=== PATIENT | male | born 1975 | race Caucasian/White ===

== ENCOUNTER 2017-03-03 06:57 | Emergency (ER) | payer OTHER ==
[~2017-03-03] VITALS: Ht 177.8 cm; Wt 111.0 kg
[2017-03-03 07:01] VITALS: Ht 177.8 cm; Wt 111.0 kg
[2017-03-03] MEDS ORDERED: KETOROLAC 60 MG INJ IM STA (07:35)
[2017-03-03 07:49] LABS: URINE BLOOD (Dip) POC 2+ (NEGATIVE)
--- NOTE | 2017-03-03 08:41 | RADRPT ---
PROCEDURE: CT KUB (renal stone survey). CLINICAL INDICATION: Left flank pain. TECHNIQUE: CT KUB (Renal Stone Survey) without contrast was performed on a multidetector high-reso lution CT scanner. No IV contrast was administered. Coronal and sagittal reformatted images were o btained from the axial source images. Images were reviewed on a high-resolution PACS workstation. Th e total exam CTDI equals 22.67 mGy and the total exam DLP equals 1290.45 mGy-cm. One or more of the following dose reduction techniques were used: - Automated exposure control. - Adjustment of the mA and/or kV according to patient size. - Use of iterative reconstruction technique. COMPARISON: No prior studies are available for comparison. FINDINGS: CT renal stone survey: The kidneys are symmetric in size, position, and morphology. There is a questionable tiny cyst in th e midpole cortex of the right kidney, very poorly visualized on this study. Small 4 mm calculus is seen along the calyx of the mid/superior pole of the left kidney. However, there is a dominant 5.0 m m calculus in the distal left UVJ causing mild proximal obstructive uropathy. Mild left-sided hydro ureternephrosis is present. There is no evidence for obstructive uropathy on the right side. The [facility] renal collecting system is normal. The bladder, as visualized, is partially collapsed and decom pressed, but otherwise grossly unremarkable. There are benign phleboliths within the pelvis, distin ct and separate from the distal ureters. CT abdomen: The lung bases are clear. The heart size is normal, without pericardial thickening or effusion. The liver is normal in size and fatty infiltrated without focal mass or intrahepatic biliary dilatation . The spleen is normal in size and homogeneous in density. The stomach is partially collapsed, but is grossly unremarkable. The pancreas as visualized is normal. The gallbladder and biliary tree a re unremarkable and there is no evidence for biliary dilatation. The adrenal glands are symmetric a nd normal. The aorta is of normal caliber. There is no retroperitoneal lymphadenopathy. The gerry hepatis region is clear. The bowel and mesentery, as visualized, are equally unremarkable. CT pelvis: The small bowel loops situated within the pelvis are unremarkable. There is a small right inguinal hernia containing omental fat only, without evidence for bowel herniation. The pelvic organs are no rmal. The pelvic sidewalls and inguinal regions are clear. The sigmoid colon and rectum are all un remarkable. No pelvic mass or adenopathy is seen. No significant free fluid is identified. No acute inflammation is seen. The surrounding osseous structures are remarkable for degenerative spondylosis of the spine. No ost eolytic or osteoblastic lesion is detected. IMPRESSION: 1. 5 mm calculus in the distal left UVJ causing mild proximal obstructive uropathy. 2. Tiny 4 mm calculus in the mid/superior pole vicki of the left kidney. 3. Small fat-containing right inguinal hernia. 4. Fatty infiltration of the liver. RPTAT: HMJB .Taras Celaya MD, MD Date Time Electronically viewed and signed by .Taras Celaya MD, on 03/03/2017 08:41 .B/
[2017-03-03] MEDS ORDERED: TRAM50TA2 PO (08:59)
[2017-03-03] MEDS ORDERED: IBUP800T25 PO (08:59)
--- NOTE | 2017-03-03 09:03 | ERD ---
ER Documentation Chief Complaint Date/Time DATE: 03/03/17 TIME: 09:02 Chief Complaint lt upper abd pain raditing to testicles since last night HPI This 5-year-old male complains of pain in his left mid abdomen radiating to his testicle since last night. Positive for some mild dysuria. Denies any hematuria, fevers, vomiting. Denies any right-sided abdominal pain and denies any pain or swelling of the actual testicle. ROS All systems reviewed and are negative except as per history of present illness. Medications Home Meds Active Scripts Ibuprofen* (Motrin*) 800 Mg Tab, 800 MG PO Q6, #20 TAB Prov:LIZZY GALLAGHER MD 03/03/17 Tramadol HCl (Tramadol HCl) 50 Mg Tablet, 50 MG PO Q4 Y for PAIN, #15 TAB Prov:LIZZY GALLAGHER MD 03/03/17 Allergies Allergies: Coded Allergies: No Known Allergy (Unverified , 03/03/17) PMhx/Soc Medical and Surgical Hx: pt denies Medical Hx History of Surgery: Yes (appendectomy) Anesthesia Reaction: No Hx Neurological Disorder: No Hx Respiratory Disorders: No Hx Cardiac Disorders: No Hx Psychiatric Problems: No Hx Miscellaneous Medical Probl: No Hx Alcohol Use: Yes (occassional) Hx Substance Use: No Hx Tobacco Use: Yes (occasional ) Smoking Status: Current some day smoker Physical Exam Vitals Vital Signs Date Time Temp Pulse Resp B/P Pulse Ox O2 Delivery O2 Flow Rate FiO2 03/03/17 07:01 98.7 76 18 138/85 99 Physical Exam Const: [] Alert, [id number]. Head: Atraumatic Eyes: Normal Conjunctiva ENT: Normal External Ears, Nose and Mouth. Neck: Full range of motion..~ No meningismus. Resp: Clear to auscultation bilaterally Cardio: Regular rate and rhythm, no murmurs Abd: Soft, minimal tenderness in left mid abdomen. No CVA tenderness., non distended. Normal bowel sounds. Testicles nontender normal size bilaterally no appreciable hernias or penile discharge. Skin: No petechiae or rashes Back: No midline or flank tenderness Ext: No cyanosis, or edema Neur: Awake and alert Psych: Normal Mood and Affect Results 24 hrs Laboratory Tests Test 03/03/17 07:53 Bedside Urine pH (LAB) 5.5 Bedside Urine Protein (LAB) Negative Bedside Urine Glucose (UA) Negative Bedside Urine Ketones (LAB) Negative Bedside Urine Blood 2+ Bedside Urine Nitrite (LAB) Negative Bedside Urine Leukocyte Esterase (L Negative Current Medications Medications (Trade) Dose Ordered Sig/Ravi Route PRN Reason Start Time Stop Time Status Last Admin Dose Admin Ketorolac Tromethamine (Toradol) 60 mg ONCE STAT IM 03/03/17 07:35 03/03/17 07:37 DC 03/03/17 07:44 Procedures/MDM Urine shows positive hemoglobin without leukocytes, nitrites or glucose. CT abdomen pelvis shows a 5 mm kidney stone at the left UVJ junction. There is some mild hydronephrosis. There is no additional acute findings of an additional undescended calculus. Patient was given Toradol 60 mg IM. Patient signs and symptoms of left renal colic. There is no evidence of testicular torsion, diverticulitis, hepatobiliary disease, acute abdomen, additional causes of presenting complaints. We treated with tramadol and ibuprofen instructions for clear fluids and neurology and primary care follow-up. Is advised to return for fevers, vomiting, new or worsening symptoms. The patient was stable with no new complaints during the ER course. Clinically, there is no current evidence to suggest meningitis, sepsis, acute abdomen, pneumonia, acute coronary syndrome, pulmonary embolism, or any other emergent condition appearing to require further evaluation or hospitalization. The patient should certainly return for any new or worsening symptoms per the aftercare instructions. They should otherwise follow-up with her primary care doctor for reevaluation this week. Departure Diagnosis: Primary Impression: Kidney stone on left side Condition: Stable Patient Instructions: Kidney Stone W/ Colic Referrals: TOMASZ MONSON MD,CHRISTOS Denise MD Additional Instructions: DOLOR ES DE JOSE AE DE RINON. CHICO [id number] AGUA . Va al sandhu doctor/ specialista para mas evaluacon en el proximo semana. posiblemente necesita autorizado de sandhu doctor primario para specialista. Regresa para fiebre, o mas o nueva simptomas- FIEBRE, VOMITO. LIZZY GALLAGHER MD Mar 03, 2017 09:03
== END 2017-03-03 09:35 | disposition home or self-care (01) ==
LOC: FTE 06:57
DX: N20.0 Calculus of kidney (principal); F17.210 Nicotine dependence, cigarettes, uncomplicated
CPT/HCPCS: 74176; 81003; 96372; 99285; J1885